=== PATIENT | male | born 1955 | race Caucasian/White ===

== ENCOUNTER 2018-06-12 15:30 | Inpatient (IN) | payer OTHER ==
[~2018-06-12] VITALS: Ht 180.3 cm; Wt 74.6 kg
--- NOTE | ~2018-06-12 | WRIGHTHP ---
[place], [place] PATIENT HISTORY AND PHYSICAL EXAM NAME: MAYA ROMANO JR [facility] #: [id number] UNIT #: [id number] ROOM: 510 DOCTOR: JOEL SHORT MD BIRTHDATE: [birth year] DOS: 06/12/2018 HISTORY OF PRESENT ILLNESS: The patient is a 63-year-old gentleman with a past medical history of: 1. Mixed hyperlipidemia. 2. Severe generalized anxiety disorder. 3. Major depression, moderate. The patient presented to my office yesterday quite unkempt as usual and complaining of not being able to control his thoughts and requesting increase in his dose of diazepam and fluoxetine, which he takes at home. The patient said he was having serious problems with his thought process processing and he felt he had lost control. No chest pain, no shortness of breath, no other GI or urinary symptoms. REVIEW OF SYSTEMS: LUNGS: No increasing shortness of breath or wheezing. GASTROINTESTINAL: No nausea, vomiting, diarrhea or constipation. CARDIOVASCULAR: No chest pains or palpitations. FAMILY HISTORY: Noncontributory. SOCIAL HISTORY: Denies smoking cigarettes, alcohol and drug abuse. FAMILY HISTORY: Noncontributory. MEDICATIONS: The patient was taking aspirin, fluoxetine, amlodipine and diazepam at home. ALLERGIES: No known drug allergies. PHYSICAL EXAMINATION: GENERAL: Alert, oriented, poor historian, in no visible distress, but looking very anxious. The patient is very unkempt. VITAL SIGNS: Blood pressure 100/60, heart rate 71 beats per minute, breathing 16 times per minute, temperature 98 degrees Fahrenheit. HEENT AND NECK: Extraocular movements are intact. Sclerae are anicteric. Oral mucosa is moist and clean. No obvious facial weakness. Neck is supple without any lymphadenopathy. No thyromegaly. No JVD. No carotid arterial bruits. LUNGS: Clear to auscultation. No wheezing. No rhonchi. CARDIOVASCULAR SYSTEM: Heart rate is regular in rate and rhythm. S1 and S2 normally audible. No significant murmur or any other abnormal cardiac sounds. ABDOMEN: Soft, nontender. No obvious organomegaly. Bowel sounds are present. No obvious herniation. EXTREMITIES: Without significant cyanosis or edema. Warm to touch. CENTRAL NERVOUS SYSTEM: Alert and oriented x 3. Cranial nerves II-XII are intact. Speech is normal. The patient is able to move all extremities. Normal muscle strength. Deep tendon reflexes are equal on both sides. Plantars were downgoing. [place], [place] PATIENT HISTORY AND PHYSICAL EXAM NAME: [id number] UN[facility] #: [id number] ROOM: [facility] DOCTOR: JOEL SHORT MD BIRTHDATE: [birth year] LABORATORY DATA: Troponin I level, 3 levels with normal range, 1 level minimally elevated to ____, blood sugar of 111. Normal CBC. IMPRESSION AND PLAN: 1. The patient with severe generalized anxiety and difficulty with processing his thoughts and unable to take care of himself at home. The patient has had significant psychological issues since he was a child. I have consulted Dr. Jacinto to evaluate him and transfer him to Behavioral Health Unit for specialized care. 2. Major depression, recurrent, mild to moderate, has been treated with Zoloft for a long time now. 3. Severe generalized anxiety disorder, treated with diazepam as needed. The patient feels as if his anxiety is out of control. 4. Borderline elevation of troponin I level. The patient is asymptomatic. No chest pains and no angina symptoms. [employer], Dr. Ny evaluated the patient and will get an echocardiogram. Dr. Ny plans to not perform any further workup if his echocardiogram is normal. 5. Mixed hyperlipidemia. The patient treated with Crestor, which will be continued along with diet control. JOEL SHORT MD CM:HISPHYS:PATIENT HISTORY AND PHYSICAL EXAMINATION 1355 [id number] JOEL SHORT MD 06/13/18 1418 interface
--- NOTE | ~2018-06-12 | EKG ---
[place], [place] ELECTROCARDIOGRAM REPORT NAME: MAYA ROMANO JR UNIT #: [id number] ROOM: 510 DOCTOR: HERBERT DRAFT REPORT BIRTHDATE: [birth year] [facility] Test Date: 2018-06-12 Test Time: 17:24:28 Pat Name: MAYA ROMANO Department: Room: 510 Gender: M Mental Tester: MEMO : 1955 Requested By: ROMY AL Order Number: [id number] Reading MD: Lazaro Ortega MD Measurements Intervals [place] Rate: 77 P: 71 MI: 131 QRS: 22 QRSD: 85 T: 63 QT: 380 QTc: 431 Interpretive Statements Sinus rhythm Probable left atrial enlargement Baseline wander in lead(s) V1 Electronically Signed On 06-13-2018 3:22:18 PST by Lazaro Ortega MD CM:EKGRPT:ELECTROCARDIOGRAM REPORT [id number] ROMY AL DO EPIPHMIKY DRAFT REPORT ROMY AL DO
--- NOTE | ~2018-06-12 | CON ---
[place], [place] REPORT OF CONSULTATION NAME: MAYA ROMANO JR UNIT #: [id number] ROOM: 510 DOCTOR: PHD GEORGE DELONTE BIRTHDATE: [birth year] DOS: 06/13/2018 HISTORY OF PRESENT ILLNESS: The patient is a 63-year-old male with history of anxiety and depression, referred by Dr. Marroquin with concerns for altered mental status and Behavioral Health Unit placement. The patient behaved intrusively and inappropriately at doctor Marroquin's office, who then encouraged the patient to present to the Emergency Department for U placement. At the present time, the patient is on the 5th floor at [facility]. The patient lives alone. He is unmarried and has no children. He is unemployed and receives SSI. He smokes pipe tobacco daily and denied illegal drug use. He struggled with alcohol use before stopping 13 years ago. PAST MEDICAL HISTORY: Mixed hyperlipidemia, severe generalized anxiety disorder; major depressive disorder, moderate. MEDICATIONS: Lipitor, aspirin, Prozac, Norvasc, Valium. PHYSICAL EXAMINATION: The patient was lying in bed comfortably, in no apparent distress. He was awake, alert and oriented to person, place and time. Eye contact and social skills were fair. He was cooperative with evaluation. Affect was restricted in range and mood was anxious. He firmly denied suicidal and homicidal ideation, plan and intent. He experiences perseverative worry, poor sleep initiation, poor appetite, muscle tension and trouble concentrating. He has panic attacks and feels restless. He has been increasingly isolative at home, feeling to go out. He initially declined to be voluntarily admitted to the Behavioral Health Unit for fear his cat will be left too long at home alone. After speaking with Dr. Marroquin and conveying to the patient Dr. Marroquin's concerns, the patient was agreeable for a voluntary admission to address his overwhelming anxiety. He agreed to talk to his sister to take care of his cat. He agreed to ask his sister to take care of his cat. Speech was slow. Expressive and receptive language appeared within normal limits on a conversational basis. Thought process was noteworthy for some perseveration about past events. There were no apparent hallucinations or delusions. Insight and judgment appeared fair. DIAGNOSES: Generalized anxiety disorder; major depressive disorder, recurrent, moderate. PLAN: Discussed the case with the [facility] staff and Dr. Jacinto has approved the patient for admission. The patient would be appropriate for the unit once he is medically stable. Thank you very much for this consult. [place], [place] REPORT OF CONSULTATION NAME: MAYA ROMANO JR UNIT #: [id number] ROOM: [facility] DOCTOR: GEORGE, PHD DELONTE BIRTHDATE: [birth year] Fiona Burgess, PhD CM:CONSTR:REPORT OF CONSULTATION 1505 06/13/18 1630 interface
[2018-06-12 15:31] VITALS: BP 146/85
[2018-06-12] MEDS ORDERED: DIAZEPAM5 MG PO (15:37)
[2018-06-12] MEDS ORDERED: CRESTOR20 M1 PO (15:37)
[2018-06-12 17:21] LABS: BASO # 0.1 10*3/uL (0.0-0.1); BASO % 0.7 % (0.0-1.0); EOS # 0.1 10*3/uL (0.0-0.4); EOS % 0.8 % (1.0-4.0); HEMATOCRIT 46.9 % (42.0-52.0); HEMOGLOBIN 15.8 g/dl (14.0-18.0); LYMPH # 1.1 10*3/uL (1.3-4.4); LYMPH % 15.7 % (27.0-41.0); MEAN CORPUSCULAR HGB CONC 33.7 g/dl (33.0-37.0); MEAN PLATELET VOLUME 11.4 fl (9.6-12.3); MONO # 0.6 10*3/uL (0.1-1.0); MONO % 8.3 % (3.0-9.0); NEUT # 5.4 10*3/uL (2.3-7.9); NEUT % 74.4 % (47.0-73.0); PLATELET COUNT AUTOMATED 231 10*3/uL (130-400); RED BLOOD COUNT 5.27 10*6/uL (4.50-5.90); WHITE BLOOD COUNT 7.2 10*3/uL (4.8-10.8)
[2018-06-12 17:25] LABS: BILIRUBIN NEGATIVE (NEGATIVE); BLOOD 1+ (NEGATIVE); CLARITY SL CLOUDY (CLEAR); COLOR YELLOW (YELLOW); GLUCOSE NEGATIVE (NEGATIVE); KETONE NEGATIVE (NEGATIVE); LEUKO ESTERASE NEGATIVE (NEGATIVE); NITRITE NEGATIVE (NEGATIVE); PH 7.5 (5.0-9.0); SPECIFIC GRAVITY 1.015 (1.005-1.030); UROBILINOGEN 0.2 E.U./dl (0.2-1.0)
[2018-06-12 17:33] LABS: URINE AMPHETAMINES < 1000 (1000ng/ml); URINE BARBITURATES < 200 (200ng/ml); URINE BENZODIAZEPINES > 200 (200ng/ml); URINE CANNABINOIDS (THC) < 50 (50ng/ml); URINE COCAINE < 300 (300ng/ml); URINE METHADONE < 300 (300ng/ml); URINE OPIATES < 300 (300ng/ml)
[2018-06-12 17:35] LABS: URINE PHENCYCLIDINE < 25 (25ng/ml)
[2018-06-12 17:41] LABS: ALBUMIN 4.2 gm/dl (3.1-4.5); ALKALINE PHOSPHATASE 136 U/L (45-117); BUN 12 mg/dl (7-24); CHLORIDE 104 mmol/L (98-107); CREATININE 1.09 mg/dL (0.70-1.30); POTASSIUM 3.5 mmol/L (3.5-5.1); SGOT/AST 14 IU/L (3-35); SGPT/ALT 12 U/L (12-78); SODIUM 139 mmol/L (136-145); TOTAL PROTEIN 7.7 gm/dL (6.4-8.2)
[2018-06-12 17:43] LABS: ETHYL ALCOHOL < 3.0 mg/dl (<3)
[2018-06-12 17:44] LABS: TROPONIN I 0.046 ng/ml (<0.045)
[2018-06-12 17:51] LABS: BACTERIA 1+; MUCOUS TRACE
[2018-06-12 17:52] LABS: EPITHELIAL CELLS 0-2; RBC 16-20 rbc/hpf (0-2); WBC 0-2 wbc/hpf (0-5)
[2018-06-12 19:29] VITALS: BP 138/68
[2018-06-12 20:15] VITALS: BP 169/86
[2018-06-13] VITALS: BP 133/86
[2018-06-13 08:00] VITALS: BP 110/70
[2018-06-13 12:00] VITALS: BP 100/60
== END 2018-06-13 16:49 | disposition home health service (06) | DRG 880 ==
LOC: ED 15:30 → 5E 19:24 → EDHOLD 19:24 → 5E 19:59
PROVIDERS: Family Medicine; Internal Medicine
DX: F41.1 Generalized anxiety disorder (principal); F33.1 Major depressive disorder, recurrent, moderate; R41.82 Altered mental status, unspecified; R74.8 Abnormal levels of other serum enzymes; I10 Essential (primary) hypertension; E78.2 Mixed hyperlipidemia; Z82.61 Family history of arthritis; Z79.899 Other long term (current) drug therapy

== ENCOUNTER 2018-06-13 16:19 | Inpatient (IN) | payer OTHER ==
[~2018-06-13] VITALS: Ht 180.3 cm; Wt 74.8 kg
--- NOTE | ~2018-06-13 | PR ---
[place], [place] PROGRESS NOTE NAME: MAYA ROMANO JR UNIT #: [id number] ROOM: 314 DOCTOR: REINA HANDLEY MD BIRTHDATE: [birth year] DOS: 06/17/2018 INTERVAL NOTE CHIEF COMPLAINT: "Yeah, I don't know what's happening or why I'm here." SUMMARY OF THE VISIT: The patient was interviewed in the dining area. He was eating his breakfast, but stopped to engage in a rather choppy, disjointed conversation with me. There is a significant amount of thought blocking and processing difficulty noted. He was not a very good historian, nor is he able to tell me in much detail exactly what happened to lead to his admission here. There is something though cognitively amiss with his presentation. MENTAL STATUS: He is alert and oriented with some significant time gaps. Mood does seem to be euthymic, but he is rather flat and blunted. As mentioned previously, there are processing issues and his thoughts are rather disjointed and fragmented. Memory does have mild gaps. PLAN: I will consult Dr. Fiona Burgess to reevaluate for diagnosis and competency as well as to further assess his cognitive status. Screening examinations reveal a vitamin B12 level that is low normal at 322. I will go ahead and treat this with vitamin B12 injection of 1000 mcg IM monthly. Engage in individual and crews milieu activity, returning then to the least restrictive environment when psychiatrically stable. REINA HANDLEY MD CM:PNTRANS [id number] REINA HANDLEY MD 06/18/18 0339 interface
--- NOTE | ~2018-06-13 | PR ---
[place], [place] PROGRESS NOTE NAME: MAYA ROMANO JR UNIT #: [id number] ROOM: 314 DOCTOR: JOEL SHORT MD BIRTHDATE: [birth year] DOS: 06/17/2018 SUBJECTIVE: The patient continues to feel better with treatment. OBJECTIVE: VITAL SIGNS: Blood pressure 96/60, heart rate 68 beats per minute, breathing 16 times per minute, temperature 98.6 degrees Fahrenheit. GENERAL APPEARANCE: The patient is alert and oriented x 3, in no visible distress. HEENT AND NECK: Exam within normal limits. CARDIOVASCULAR SYSTEM: Heart rate is regular in rate and rhythm. S1 and S2 normally audible. LUNGS: Clear to auscultation. ABDOMEN: Soft, nontender. No obvious organomegaly. Bowel sounds are present. EXTREMITIES: Without significant cyanosis or edema. IMPRESSION AND PLAN: 1. The patient has history of hypertension, but becoming hypotensive now, so I will stop his amlodipine and continue to monitor blood pressures. 2. The patient has psychosis, being treated with Invega. 3. Major depression, recurrent, moderate; treated with Cymbalta now. 4. Mixed hyperlipidemia, treated with atorvastatin. 5. Generalized anxiety disorder, being followed and treated. JOEL SHORT MD CM:PNTRANS 1147 2 JOEL SHORT MD 06/18/18211 interface
--- NOTE | ~2018-06-13 | PR ---
[place], [place] PROGRESS NOTE NAME: MAYA ROMANO JR UNIT #: [id number] ROOM: 314 DOCTOR: JOEL SHORT MD BIRTHDATE: [birth year] DOS: 06/16/2018 SUBJECTIVE: The patient is feeling somewhat better today, says he worked with some mental exercises on paper and he thinks he did well. OBJECTIVE: VITAL SIGNS: Blood pressure 103/57, breathing normally, afebrile, heart rate of 64 beats per minute. GENERAL APPEARANCE: The patient is alert and oriented x 3, in no visible distress. HEENT AND NECK: Exam within normal limits. CARDIOVASCULAR SYSTEM: Heart rate is regular in rate and rhythm. S1 and S2 normally audible. LUNGS: Clear to auscultation. ABDOMEN: Soft, nontender. No obvious organomegaly. Bowel sounds are present. EXTREMITIES: Without significant cyanosis or edema. IMPRESSION AND PLAN: 1. The patient with severe anxiety disorder, being treated with Cymbalta and Ativan as needed. 2. Major depression, recurrent, moderate, being treated with Cymbalta. JOEL SHORT MD CM:PNTRANS 57 08 JOEL SHORT MD 06/16/182108 interface
--- NOTE | ~2018-06-13 | CON ---
[place], [place] REPORT OF CONSULTATION NAME: MAYA ROMANO JR UNIT #: [id number] ROOM: 314 DOCTOR: JOEL SHORT MD BIRTHDATE: [birth year] DOS: 06/14/2018 ATTENDING PHYSICIAN: Dr. Jacinto. HISTORY OF PRESENT ILLNESS: The patient is a 63-year-old gentleman with: 1. Significant psych history. 2. Mixed hyperlipidemia, treated with Crestor. 3. Severe generalized anxiety disorder. 4. Major depression, recurrent, moderate, now admitted to [facility] for further evaluation and management. The patient was having significant issue with processing his thoughts and being able to take care of himself at home. The patient says his thoughts were very scattered. Initially, the patient admitted to [facility] for mildly elevated cardiac enzyme, which was evaluated by Cardiology and no further evaluation was recommended. 5. Severe generalized anxiety disorder, which was treated with diazepam as needed in the past. 6. Generally, the patient is very unkempt and has difficulty with maintaining his hygiene at home. Dr. Jacinto, thank you for asking me to see the patient. We will follow along with you for his medical care and management. JOEL SHORT MD CM:CONSTR:REPORT OF CONSULTATION 1137 06/14/18 1320 interface
--- NOTE | ~2018-06-13 | PR ---
[place], [place] PROGRESS NOTE NAME: MAYA ROMANO JR UNIT #: [id number] ROOM: 314 DOCTOR: JOEL SHORT MD BIRTHDATE: [birth year] DOS: 06/15/2018 SUBJECTIVE: The patient still seems somewhat anxious and concerned, but in no distress. OBJECTIVE: VITAL SIGNS: Blood pressure 110/67, heart rate 63 beats per minute, breathing 16 times per minute, temperature 98 degrees Fahrenheit. GENERAL APPEARANCE: The patient is alert and oriented x 3, in no visible distress. HEENT AND NECK: Exam within normal limits. CARDIOVASCULAR SYSTEM: Heart rate is regular in rate and rhythm. S1 and S2 normally audible. LUNGS: Clear to auscultation. ABDOMEN: Soft, nontender. No obvious organomegaly. Bowel sounds are present. EXTREMITIES: Without significant cyanosis or edema. IMPRESSION: 1. The patient with psychosis, severe anxiety, being treated now with Invega. 2. Major depression, recurrent, moderate, treated with Cymbalta. 3. Benign essential hypertension, treated and controlled with amlodipine. 4. Mixed hyperlipidemia, being treated with atorvastatin. 5. Generalized anxiety disorder, treated with lorazepam as needed. JOEL SHORT MD CM:PNTRANS 1721 [id number] JOEL SHORT MD 06/16/18 0539 interface
--- NOTE | ~2018-06-13 | DS ---
[place], [place] DISCHARGE SUMMARY [id number] UN[facility] #: [id number] ROOM: 314 DOCTOR: REINA HANDLEY MD BIRTHDATE: [birth year] DOS: 06/18/2018 CHIEF COMPLAINT: "It all just happened so fast." HISTORY OF PRESENT ILLNESS: This is a 63-year-old white male who resides in [place] and is a patient of Dr. Marroquin. The patient had presented to his primary care physician's office with severe anxiety and depression. Dr. Marroquin felt that the patient was acting bizarrely and was not quite himself and sent the patient to the Emergency Room at [facility]. A full cardiac workup was done, which was negative and the patient was medically cleared and felt that an inpatient evaluation was warranted due to his depression and his bizarre behavior. He was admitted subsequently then to rule out further organic factors, to attempt to stabilize on medication, to engage in individual and crews milieu activity and to determine the least restrictive environment to which he could be discharged to. SUMMARY OF HOSPITAL COURSE: The patient was admitted to the unit where his p.r.n. Valium was discontinued as well as Prozac 40 mg a day. In lieu of the Prozac, he was started on Cymbalta 30 mg at bedtime. Later in his stay because he was having some thought blocking and processing issues, he was started on Invega 1.5 mg daily. With the combination of the Cymbalta and Invega, the patient improved dramatically. Mood did improve, anxiety lessened. He slept well, ate well and voiced a willingness and a readiness to return home. He was discharged then back home on June 18. MENTAL STATUS AT DISCHARGE: The patient is alert and oriented to person, place and approximate to time. Mood does seem to be euthymic. Affect appropriate. There is no ramona or hypomania noted. There is no gross psychosis noted. Short term memory has some gaps, otherwise he is intact. DISCHARGE DIAGNOSES: Major depression, recurrent with psychotic features. DISPOSITION: All of his prescriptions have been e e-scribed to [facility]. He will have followup in the community. At the time of discharge, he was medically and psychiatrically stable. [place], [place] DISCHARGE SUMMARY NAME: MAYA ROMANO JR UNIT #: [id number] ROOM: 314 DOCTOR: REINA HANDLEY MD BIRTHDATE: [birth year] REINA HANDLEY MD CM:GOSIA [id number] REINA HANDLEY MD 06/18/18 1054 interface
--- NOTE | ~2018-06-13 | CON ---
[place], [place] REPORT OF CONSULTATION NAME: [facility] JR [facility] [id number] UNIT #: [id number] ROOM: 314 DOCTOR: PHD DELONTE BURGESS BIRTHDATE: [birth year] DOS: 06/17/2018 HISTORY OF PRESENT ILLNESS: The patient is a 63-year-old male with history of anxiety and depression, referred by Dr. Jacinto for a competency evaluation. At the present time, the patient is on the Senior Behavior[facility] Health Unit at the [facility]. The patient lives alone, is unmarried and does not have any children. He is unemployed and receives SSI. He stopped drinking alcohol 13 years ago and denied illegal drug use. He smokes pipe tobacco daily. PAST MEDICAL HISTORY: Hyperlipidemia, severe generalized anxiety disorder; major depressive disorder, moderate. MEDICATIONS: B12, Cymbalta, Invega, Lipitor, Geodon, Ativan. The patient was sitting comfortably, in no apparent distress. He was oriented to person, place, time and situation. Eye contact and social skills were fair. The patient was cooperative with the evaluation. Affect was flat and mood was depressed. He denied suicidal and homicidal ideation, plan and intent. Speech was slow. Expressive and receptive language appeared within normal limits on a conversational basis. Thought process was linear and goal directed. He denied hallucinations. There was no evidence of delusions. Insight and judgment were fair. The patient was able to discuss his medical issues and treatment. The patient earned a 22/30 on the Westby Cognitive Assessment with an intact score being 26. Mini trials B and Necker cube copy were impaired. Clock drawing was intact. The patient made did not make any errors on tests of attention. He was able to repeat a minimum of 5 digits forward and 3 digits backwards. He did not make any errors on a test of vigilance and was able to correctly complete 5 correct serial 7 subtractions. With respect to language abilities, he made one small area of addition on a test of sentence repetition. Verbal fluency was one word shy of the cut-off. He made two errors of repetition. Naming was intact and verbal abstraction was somewhat concrete. On a test of memory, the patient was able to recall 5/5 words on both immediate recall trials and 2/5 for delayed recall. Performance did not improve with category cues and improved to 3/5 with multiple choices. The patient appeared anxious during this assessment and frequently asked questions to ensure that he had a correct understanding of the task. SUMMARY: Overall, the patient appears to be competent to make his own decisions at this time. He had some difficulties with executive functioning and memory on the MoCA, but he was able to correctly identify all words with the help of multiple choice. Contributing factors to performance likely include his emotional status. Medication effect may also be a contributing factor. DIAGNOSES: Generalized anxiety disorder; major depressive disorder, recurrent, moderate. RECOMMENDATIONS: In my opinion, the patient appears to be competent to make his medical decisions. [place], [place] REPORT OF CONSULTATION NAME: JUAN ANTONIO JRMAYA E UNIT #: [id number] ROOM: 314 DOCTOR: GEORGE, PHD DELONTE BIRTHDATE: [birth year] Thank you very much for this consult. Fiona Burgess, PhD CM:CONSTR:REPORT OF CONSULTATION 1626 06/18/18 0514 interface
[~2018-06-13 16:19] MED LIST: CRESTOR20 M1 PO; DIAZEPAM5 MG PO
[2018-06-13 18:29] VITALS: BP 123/73
[2018-06-13 19:46] VITALS: BP 123/73
[2018-06-14 07:12] VITALS: BP 100/69
[2018-06-14 08:56] VITALS: BP 118/58
[2018-06-14 19:55] VITALS: BP 112/65
[2018-06-15 07:19] VITALS: BP 110/67
[2018-06-15 19:15] VITALS: BP 116/64
[2018-06-16 07:19] VITALS: BP 103/57
[2018-06-16 19:55] VITALS: BP 112/59
[2018-06-17 07:32] VITALS: BP 108/60
[2018-06-17 08:11] LABS: VITAMIN D, 25-HYDROXY 44.3 ng/mL (30-100)
[2018-06-17 09:06] VITALS: BP 96/60
[2018-06-17 19:51] VITALS: BP 107/64
[2018-06-18 08:14] VITALS: BP 100/54
[2018-06-18] MEDS ORDERED: B121000 MCG/1 IM (09:23)
[2018-06-18] MEDS ORDERED: DULOXETINE HCL60 MG PO (09:23)
[2018-06-18] MEDS ORDERED: INVEGA1.5 MG PO (09:23)
[2018-06-18] MEDS ORDERED: AMLODIPINE BESYL5 MG PO (11:16)
[2018-06-18] MEDS ORDERED: FLUOXETINE HCL40 MG PO (11:17)
== END 2018-06-18 13:15 | disposition home or self-care (01) | DRG 885 ==
LOC: 3N 16:19
PROVIDERS: Psychiatry & Neurology Psychiatry
DX: F33.3 Major depressive disorder, recurrent, severe with psychotic symptoms (principal); F23 Brief psychotic disorder; I10 Essential (primary) hypertension; F41.1 Generalized anxiety disorder; I95.9 Hypotension, unspecified; E78.2 Mixed hyperlipidemia; Z82.61 Family history of arthritis; Z84.1 Family history of disorders of kidney and ureter; Z83.518 Family history of other specified eye disorder; Z79.899 Other long term (current) drug therapy; Z72.0 Tobacco use

== ENCOUNTER → 2019-07-29 | Outpatient (CLI) | payer OTHER ==
[~2019-07-29] MED LIST changes: +AMLODIPINE BESYL5 MG PO; +B121000 MCG/1 IM; +DULOXETINE HCL60 MG PO; +FLUOXETINE HCL40 MG PO; +INVEGA1.5 MG PO
[2019-07-29 14:50] LABS: BASO # 0.1 10*3/uL (0.0-0.1); BASO % 0.8 % (0.0-1.0); EOS # 0.1 10*3/uL (0.0-0.4); EOS % 1.1 % (1.0-4.0); HEMATOCRIT 48.1 % (42.0-52.0); HEMOGLOBIN 15.8 g/dl (14.0-18.0); LYMPH # 1.3 10*3/uL (1.3-4.4); LYMPH % 14.8 % (27.0-41.0); MEAN CELL VOLUME 89.2 fl (80.0-94.0); MEAN CORPUSCULAR HGB 29.3 pg (27.0-31.0); MEAN CORPUSCULAR HGB CONC 32.8 g/dl (33.0-37.0); MEAN PLATELET VOLUME 10.6 fl (9.6-12.3); MONO # 0.7 10*3/uL (0.1-1.0); MONO % 7.9 % (3.0-9.0); NEUT # 6.8 10*3/uL (2.3-7.9); NEUT % 75.2 % (47.0-73.0); PLATELET COUNT AUTOMATED 283 10*3/uL (130-400); RED BLOOD COUNT 5.39 10*6/uL (4.50-5.90); RED CELL DISTRI WIDTH 13.3 % (0-14.5)
[2019-07-29 15:05] LABS: ALKALINE PHOSPHATASE 192 U/L (45-117); BUN 10 mg/dl (7-24); CHLORIDE 105 mmol/L (98-107); CHOLESTEROL 110 mg/dL (<200); CPK 62 U/L (39-308); CREATININE 1.13 mg/dL (0.70-1.30); HDL CHOLESTEROL 46 mg/dl (40-60); LDL CHOLESTEROL 43 mg/dL (9-159); POTASSIUM 4.1 mmol/L (3.5-5.1); SGOT/AST 6 IU/L (3-35); SGPT/ALT 9 U/L (12-78); SODIUM 139 mmol/L (136-145); TOTAL PROTEIN 7.8 gm/dL (6.4-8.2); TRIGLYCERIDES 103 mg/dl (<150); VLDL CHOLESTEROL 21 mg/dL (6-40)
[2019-07-29 15:06] LABS: FREE T4 1.19 ng/dl (0.76-1.46)
[2019-07-29 15:31] LABS: VITAMIN D, 25-HYDROXY 38.7 ng/mL (30-100)
== END | disposition home or self-care (01) ==
LOC: LAB 14:26
PROVIDERS: Internal Medicine
DX: Z12.11 Encounter for screening for malignant neoplasm of colon (principal); Z13.1 Encounter for screening for diabetes mellitus; Z12.5 Encounter for screening for malignant neoplasm of prostate; E78.2 Mixed hyperlipidemia; I10 Essential (primary) hypertension; E55.9 Vitamin D deficiency, unspecified

== ENCOUNTER → 2020-02-06 | Outpatient (CLI) | payer OTHER ==
[~2020-02-06] MED LIST changes: +ABILIFY30 MG PO; +NORVASC10 MG PO
== END | disposition home or self-care (01) ==
LOC: COVID19 00:08
DX: Z11.59 Encounter for screening for other viral diseases (principal)

== ENCOUNTER → 2020-02-13 | Day surgery (SDC) | payer OTHER ==
[~2020-02-13] VITALS: Ht 182.8 cm; Wt 85.3 kg
[2020-02-13 08:14] VITALS: BP 150/72
[2020-02-13 09:15] VITALS: BP 97/61
[2020-02-13 09:30] VITALS: BP 102/67
[2020-02-13 09:45] VITALS: BP 111/68
== END | disposition home or self-care (01) ==
LOC: SDC 02-09 09:30
DX: R19.5 Other fecal abnormalities (principal); D12.5 Benign neoplasm of sigmoid colon; K57.30 Diverticulosis of large intestine without perforation or abscess without bleeding; K64.8 Other hemorrhoids; F41.9 Anxiety disorder, unspecified; F32.9 Major depressive disorder, single episode, unspecified; Z98.890 Other specified postprocedural states; Z79.899 Other long term (current) drug therapy

== ENCOUNTER → 2020-09-08 | Outpatient (CLI) | payer OTHER ==
[2020-09-08 13:59] LABS: BASO # 0.1 10*3/uL (0.0-0.1); BASO % 0.7 % (0.0-1.0); EOS # 0.2 10*3/uL (0.0-0.4); EOS % 1.8 % (1.0-4.0); HEMATOCRIT 45.5 % (42.0-52.0); LYMPH # 1.7 10*3/uL (1.3-4.4); MEAN CELL VOLUME 86.5 fl (80.0-94.0); MEAN CORPUSCULAR HGB 29.1 pg (27.0-31.0); MEAN CORPUSCULAR HGB CONC 33.6 g/dl (33.0-37.0); MEAN PLATELET VOLUME 10.6 fl (9.6-12.3); MONO # 0.8 10*3/uL (0.1-1.0); MONO % 8.6 % (3.0-9.0); PLATELET COUNT AUTOMATED 229 10*3/uL (130-400); RED BLOOD COUNT 5.26 10*6/uL (4.50-5.90); RED CELL DISTRI WIDTH 13.6 % (0-14.5); WHITE BLOOD COUNT 8.7 10*3/uL (4.8-10.8)
[2020-09-08 14:27] LABS: ALBUMIN 3.9 gm/dl (3.1-4.5); ALKALINE PHOSPHATASE 169 U/L (45-117); BUN 17 mg/dl (7-24); CHLORIDE 109 mmol/L (98-107); CHOLESTEROL 118 mg/dL (<200); FREE T4 0.92 ng/dl (0.76-1.46); HDL CHOLESTEROL 48 mg/dl (40-60); LDL CHOLESTEROL 52 mg/dL (9-159); SGOT/AST 12 IU/L (3-35); SGPT/ALT 12 U/L (12-78); SODIUM 141 mmol/L (136-145); TOTAL PROTEIN 7.4 gm/dL (6.4-8.2); TRIGLYCERIDES 90 mg/dl (<150); VLDL CHOLESTEROL 18 mg/dL (6-40)
[2020-09-08 14:48] LABS: VITAMIN D, 25-HYDROXY 29.3 ng/mL (30-100)
== END | disposition home or self-care (01) ==
LOC: LAB 13:41
PROVIDERS: ATTEND Internal Medicine
DX: Z12.5 Encounter for screening for malignant neoplasm of prostate (principal); I10 Essential (primary) hypertension; E78.2 Mixed hyperlipidemia; E55.9 Vitamin D deficiency, unspecified; Z00.00 Encounter for general adult medical examination without abnormal findings